=== PATIENT | female | born 1950 | race Caucasian/White ===

== ENCOUNTER → 2017-07-09 | Outpatient (CLI) | payer BC | END | disposition home or self-care (01) | LOC: CARD 08:25 | PROVIDERS: ATTEND Family Medicine | DX: R07.9 Chest pain, unspecified (principal); I10 Essential (primary) hypertension | CPT/HCPCS: 93017 ==

== ENCOUNTER 2020-12-20 08:31 | Day surgery (SDC) | payer BC ==
[~2020-12-20] VITALS: Ht 170.2 cm; Wt 83.0 kg
[2020-12-20] MEDS ORDERED: ASPI81TA45 PO (09:21)
[2020-12-20] MEDS ORDERED: PROP80CA47 PO (09:21)
[2020-12-20] MEDS ORDERED: ATOR40TA78 PO (09:21)
[2020-12-20] MEDS ORDERED: AMLO-150 PO (09:21)
[2020-12-20] MEDS ORDERED: NITROGLYCERIN 0.4 MG SL (09:21)
[2020-12-20 09:22] VITALS: BP 139/59
[2020-12-20 09:26] LABS: BASOPHILS % (AUTO) 1 % (0-1); EOSINOPHILS % (AUTO) 4 % (1-7); LYMPHOCYTES % (AUTO) 39 % (22-44); MEAN CORPUSCULAR HEMOGLOBIN 30.5 pg (27.0-34.8); MEAN PLATELET VOLUME 8.3 fL (7.4-10.4); MONOCYTES % (AUTO) 13 % (2-9); NEUTROPHILS % (AUTO) 44 % (42-75); PLATELET COUNT 186 x10^3/uL (130-400); RED BLOOD COUNT 4.51 x10^6/uL (3.82-5.3); RED CELL DISTRIBUTION WIDTH 13.4 % (9.6-15.2)
[2020-12-20 09:27] LABS: MD NO
[2020-12-20] MEDS ORDERED: PLEASE ENTER HEIGHT AND WEIGHT MC SCH (09:30)
[2020-12-20 09:34] LABS: ANION GAP 6 mmol/L (5-15); CALCIUM 9.5 mg/dL (8.5-10.1); CHLORIDE 107 mmol/L (98-107); CREATININE 0.96 mg/dL (0.55-1.02)
[2020-12-20] MEDS ORDERED: VERAPAMIL 2.5 MG/ML, 2ML ONE (10:45)
[2020-12-20] MEDS ORDERED: FENTANYL PF 100 MCG/2ML ONE (10:45)
[2020-12-20] MEDS ORDERED: MIDAZOLAM 1 MG/ML, 5ML ONE (10:45)
[2020-12-20] MEDS ORDERED: HEPARIN 1,000 UNITS/ML, 10ML ONE (10:45)
[2020-12-20] MEDS ORDERED: LIDOCAINE-MPF 1%, 5ML ONE (10:45)
[2020-12-20] MEDS ORDERED: NITROGLYCERIN 5 MG/ML, 10ML ONE (10:50)
[2020-12-20] MEDS ORDERED: SODIUM CHLORIDE 0.9% 1,000 ML IV SCH ×2 (11:00→12:00)
== END 2020-12-20 13:14 | disposition home or self-care (01) ==
LOC: CACL 08:31
PROVIDERS: ATTEND Internal Medicine Cardiovascular Disease
DX: I25.118 Atherosclerotic heart disease of native coronary artery with other forms of angina pectoris (principal); I10 Essential (primary) hypertension; E78.2 Mixed hyperlipidemia; Z79.899 Other long term (current) drug therapy; Z82.49 Family history of ischemic heart disease and other diseases of the circulatory system; Z88.8 Allergy status to other drugs, medicaments and biological substances
CPT/HCPCS: 36415; 80048; 85025; 93458; 99156; C1769; C1894; J1644; J2250; J3010; Q9967